=== PATIENT | female | born 1975 | race Caucasian/White ===

== ENCOUNTER 2017-01-10 13:03 | Outpatient (CLI) | payer OTHER ==
--- NOTE | 2017-01-10 14:34 | DIAGNOSTIC IMAGING REPORT ---
PROCEDURE: US COMPLETE PELVIC W/TRANSVAG INDICATION: IUD STRINGS LOST TECHNIQUE: Transabdominal and endovaginal gomez scale and color Doppler sonographic images of the female pelvis were obtained. COMPARISON: 03/14/2011 FINDINGS: TRANSABDOMINAL SCANS: Anteverted uterus measures approximately 7.6 cm in length. An IUD is visualized within the fundal endometrium in what appears to be appropriate position. Mildly lobular contour and slightly heterogeneous myometrial echotexture. Dominant cystic structure associated with the right ovary. The left ovary, located anterior within the adnexa measures 3.1 x 2.8 x 1.4 cm and contains a few dominant follicles. There is normal vascularity. Normal adnexa without suspicious mass. The visible portion of the urinary bladder is normal. No significant free pelvic fluid. Incidental note made of left lower pole 1.4 cm simple renal cyst. TRANSVAGINAL SCANS: The uterus is anteverted anteflexed in position and has a heterogeneous hypoechoic myometrial echotexture. The cervix is long and has a normal appearance. The uterus including cervix measures 11.0 x 5.0 x 6.3 cm. The distal portion of the IUD string is visible within the cervix approximately 12 mm proximal to the external cervical os. The endometrium is 8 mm in thickness. A T-shaped IUD is in good position with crossbar at the endometrial fundus without rotation. No endometrial fluid collections or suspicious masses. The right ovary measures 3.4 x 2.7 x 2.6 cm and has a normal follicular echotexture. 2 cm corpus luteum follicle present. There is normal arterial and venous ovarian flow present. The left ovary was only seen by transabdominal imaging. No suspicious adnexal masses or free pelvic fluid. IMPRESSION: 1. IUD in satisfactory position within the fundal endometrium. 2. The distal aspect of the IUD string is approximately 12 mm from the external cervical os. 3. Normal ovaries, left only visible by transabdominal imaging. 4. Mildly enlarged and heterogeneous myometrium without discrete mass.
--- NOTE | 2017-01-10 14:36 | DIAGNOSTIC IMAGING REPORT ---
PROCEDURE: MG BILATERAL SCREENING W/CAD INDICATION: SCREENING TECHNIQUE: Standard CC and MLO views bilaterally. Computer aided detection was used. COMPARISON: None. FINDINGS: Moderately dense fibroglandular tissue is present bilaterally. No abnormal densities, areas of architectural distortion, or suspicious microcalcifications. IMPRESSION: 1. Normal mammograms without radiographic evidence of malignancy. RESULT CODE: 1- Negative. A. A negative report should not delay biopsy if a dominant or clinically suspicious mass is present. 10-15% of cancers are not identified by x-ray. B. A negative report may reinforce clinical impression. C. Adenosis and dense breasts may obscure an underlying neoplasm. D. False positive reports average 6-10%. E.. A yearly screening mammogram is recommended. A reminder letter will be scheduled.
== END 2017-01-10 23:00 | disposition home or self-care (01) ==
LOC: US SRH 13:03
DX: Z97.5 Presence of (intrauterine) contraceptive device (principal); Z12.31 Encounter for screening mammogram for malignant neoplasm of breast